=== PATIENT | male | born 1950 | race Caucasian/White ===

== ENCOUNTER 2017-06-06 05:29 | Emergency (ER) | payer MEDICARE, OTHER ==
[2017-06-06 05:51] VITALS: BP 139/76
--- NOTE | 2017-06-06 06:17 | ERNOTE ---
Chest Pain/Cardiac HPI Chief Complaint: Palpitations Time Seen by Provider: 06/06/17 06:03 Source: patient Exam Limitations: no limitations Immunizations: IMMUNIZATION HX Immunizations Up to Date Yes History of Influenza Vaccine No Hx Pneumococcal Vaccination Yes Allergies/Adverse Reactions: Allergies latex Adverse Reaction (Mild, Verified 06/06/17 05:51) watery eyes morphine Adverse Reaction (Mild, Verified 06/06/17 05:51) tremors Penicillins Adverse Reaction (Mild, Verified 06/06/17 05:51) hives, vomiting, tremors housekeeping spray Allergy (Severe, Uncoded 06/06/17 05:51) Shortness of Breath Severe Breathing Problems Home Medications: HOME MEDICATIONS Aspirin [Ecotrin] 325 mg PO DAILY 08/12/13 [Last Taken 07/11/14] Digoxin 125 mcg PO DAILY 08/12/13 [Last Taken 07/11/14] Eszopiclone [Lunesta] 3 mg PO DAILY 08/12/13 [Last Taken 07/11/14] HYDROcodone/ACETAMINOPHEN [[place] 5-325 Tablet] 1 each PO Q12H PRN 08/12/13 [ Last Taken 07/11/14] Losartan Potassium [Cozaar] 50 mg PO DAILY 08/12/13 [Last Taken 07/11/14] Pioglitazone HCl/Metformin HCl [Actoplus Met 15 mg-850 mg Tab] 1 each PO BID [Last Taken 07/11/14] Pregabalin [Lyrica] 100 mg PO BID 08/12/13 [Last Taken 07/11/14] Centrum Silver Ultra Men's Tab 05/10/14 [Last Taken Unknown] Vitamin D3 05/10/14 [Last Taken Unknown] Narrative: Pt states he awoke with shortness of breath that he was not sure was a panic attack or if he was in a-fib again. Timing: constant Severity/Quality: moderate Location: substernal Chest Pain Radiation: no radiation Activities at Onset: sleep Modifying Factors - Improves: Present: nothing Modifying Factors - Worsens: Present: nothing Review of Systems - Review of Systems Constitutional: Present: no symptoms reported EYE: Present: no symptoms reported ENT: Present: no symptoms reported Respiratory: Present: shortness of breath. Absent: wheezing Cardiology: Present: palpitations. Absent: chest pain Gastrointestinal/Abdominal: Present: nausea Genitourinary: Present: no symptoms reported Musculoskeletal: Present: no symptoms reported Skin: Absent: rash Neurological: Present: tingling - hands and feet. Endocrine: Present: no symptoms reported Hematologic/Lymphatic: Present: no symptoms reported Psych: Present: anxiety - Patient's Past Medical History Patient History - Medical: Diabetes Type 2 Patient History - Cardiac/Respiratory: Atrial Fibrillation Patient History - Cancer: No Hx of Cancer Patient History - Surgical Procedures: Back Surgery, Cholecystectomy, Total Knee Replacement, T & A, Other - Family History Brother Family History - Medical: , Diabetes Type 2, Renal Failure, Seizures Family History - Cardiac/Respiratory: CHF Father Family History - Medical: , Diabetes Type 2 Family History - Cardiac/Respiratory: Coronary Heart Disease Mother Family History - Medical: Family History - Cardiac/Respiratory: COPD Sister Family History - Medical: Diabetes Type 2 - Social History Living Situations: home Smoking Status: Never smoker Alcohol Use: none Drug Use: none - Immunizations Immunizations Up to Date: Yes Hx Pneumococcal Vaccination: Yes History of Influenza Vaccine: No Physical Exam - Physical Exam General Appearance: Present: wd/wn, alert, mild distress Head Exam: Present: normal inspection, no evidence of injury Eye Exam: Normal inspection: bilateral Ears, Nose, Throat: Present: normal ENT inspection Neck: Present: normal inspection, nontender, supple Respiratory: Present: no respiratory distress, no accessory muscle use, lungs clear Cardiovascular/Chest: Present: regular rate, rhythm, no murmur, normal peripheral pulses Gastrointestinal/Abdominal: Present: normal bowel sounds, nondistended, soft, tenderness - mild epigastric. Absent: distended, guarding, rebound Extremity Exam: Present: normal inspection, normal range of motion, no edema Neurological Exam: Present: alert, oriented, normal mood/affect, no motor/ sensory deficits Skin Exam: Present: normal color, warm/dry Lymphatic Exam: Present: no adenopathy ED Progress - Results and Orders Patient's Lab Results:: I have reviewed the patient's lab results. Results and Orders: Laboratory Tests 06/06/17 06/06/17 06/06/17 06:15 06:15 06:15 WBC 5.1 Hgb 12.6 L Hct 36.7 L Plt Count 164 PT 10.7 INR (Anticoag Therapy) 1.03 PTT ([place]) 26.4 Sodium 140 Potassium 3.6 D Chloride 104 Carbon Dioxide 26.3 Anion Gap 13.3 BUN 12 Creatinine 0.91 Random Glucose 117 H Calcium 8.8 Total Bilirubin 1.8 H AST 17 ALT 22 Alkaline Phosphatase 77 Troponin I Less than 0.017 Total Protein 6.1 L Albumin 3.7 Digoxin 06/06/17 06:24 WBC Hgb Hct Plt Count PT INR (Anticoag Therapy) PTT ([place]) Sodium Potassium Chloride Carbon Dioxide Anion Gap BUN Creatinine Random Glucose Calcium Total Bilirubin AST ALT Alkaline Phosphatase Troponin I Total Protein Albumin Digoxin 0.5 - Vital Signs Patient's Vital Signs:: I have reviewed the patient's vital signs. Vital Signs: Vital Signs 06/06/17 05:47 Temperature 36.9 C Pulse Rate 77 Respiratory 18 Rate Blood Pressure 139/76 O2 Sat by Pulse 100 Oximetry - Progress/Reassessment Chief Complaint: Palpitations Progress:: Unchanged Progress Note-Subjective: 06/06/17 07:01 I went into the room to talk to the patient about his lab and talk about discharge. The patient was talking to the nurse about leaving AMA. I told him there was no reason for that as I am planning on discharging him. Pt is anxious and has difficulty processing what I am telling him. He is focused on a previous visit when he was sent to [place] "against my will", and is afraid that will happen again. I assured him that I do not believe he needs to be transferred anywhere and that I was trying to talk to him about going home. I asked if he would like something sent home with him to help with his anxiety. Pt could not answer the question and continued to appear anxious but did not answer. 06/06/17 08:21 We were going to discharge the patient but he had an IV access in his right AC. He was then resistant to let us take his IV out before he left. Pt. even clenched his fist at me when I tried to remove the IV. We decided to allow the patient his space for a short time, the nurse then returned to the room and she was able to remove the IV. There was still some concern about the patient going home alone. [facility] clinical administrator came and assisted with the patient and they were able to get the patient to give them a number for his daughter. She came and accompanied the patient home. Departure Clinical Impression: Anxiety reaction - Departure Disposition: Home Follow Up Needed Condition: Good Instructions: Panic Attacks, [id number] Referrals: Jarad Pacheco DO [Primary Care Provider] -
[2017-06-06 06:21] LABS: Hematocrit 36.7 % (42.0-52.0); Hemoglobin 12.6 gm/dL (13.5-18.0); Mean Cell Volume 89.3 fl (78-100); Mean Corpuscular Hemoglobin 30.7 pg (27-31); Mean Corpuscular Hgb Conc 34.3 g/dl (32-36); Mean Platelet Volume 9.4 fl (6.0-9.5); Neutrophil # 2.7 K/mm3 (1.3-6.0); Neutrophil % 53.7 % (42-75.0); Platelet Count 164 K/mm3 (150-450); Red Blood Count 4.11 M/mm3 (4.7-6.0); Red Cell Distribution Width 13.5 % (11.5-14.0); White Blood Count 5.1 K/mm3 (4.0-10.5)
[2017-06-06 06:26] LABS: Prothrombin Time (Patient) 10.7 Seconds (9.4-11.4)
[2017-06-06 06:27] LABS: INR 1.03 INR (0.90-1.10); Partial Thrombolplastin Time 26.4 Seconds (24-32)
[2017-06-06 06:34] LABS: ALT 22 U/L (19-67); AST 17 U/L (0-48); Albumin * 3.7 gm/dl (3.4-5.0); Alkaline Phosphatase * 77 U/L (50-170); Anion Gap 13.3 mmol/L (6.8-13.8); BUN/Creatinine Ratio 13.2 (9.0-21.6); Bilirubin, Total 1.8 mg/dL (0.0-1.1); Blood Urea Nitrogen 12 mg/dL (6-23); Ca. Corrected For Albumin 8.7 mg/dL (8.4-10.2); Calcium * 8.8 mg/dL (7.9-10.9); Carbon Dioxide 26.3 mmol/L (24-32.6); Chloride 104 mmol/L (97-106); Glucose * 117 mg/dL (70-110); Potassium 3.6 mmol/L (3.4-4.6); Sodium 140 mmol/L (132-142); Total Protein 6.1 gm/dL (6.2-8.2)
[2017-06-06 06:35] LABS: Troponin I Less than 0.017 ng/ml (0.00-0.10)
[2017-06-06] MEDS ORDERED: ONDANSETRON 4 MG TAB.RAPDIS ONE (08:08)
[2017-06-06 08:09] LABS: Urine Bilirubin Negative (NEGATIVE); Urine Blood Negative /ul (NEGATIVE); Urine Ketone 15 mg/dL (NEGATIVE); Urine Nitrite Negative (NEGATIVE); Urine Protein Negative (NEGATIVE); Urine Specific Gravity 1.015 SP.GR. (1.005-1.030); Urine Urobilinogen Normal (NORMAL); Urine pH 7.5 pH (5.0-7.0)
[2017-06-06] MEDS ORDERED: ONDANSETRON 4 MG TAB.RAPDIS PO ONE (08:10)
[2017-06-06 08:18] LABS: Urine Appearance Clear; Urine Bacteria None Seen; Urine Color Yellow; Urine RBC None Seen /hpf (0-5); Urine WBC None Seen /hpf (0-5)
[2017-06-06 08:25] LABS: Cocaine Ur Negative (NEGATIVE); Urine Barbiturate Negative (NEGATIVE); Urine Benzodiazepines Negative (NEGATIVE); Urine Opiates Negative (NEGATIVE); Urine PCP Negative (NEGATIVE); Urine THC Negative (NEGATIVE)
== END 2017-06-06 09:35 | disposition home or self-care (01) ==
LOC: ER 05:29
DX: F41.1 Generalized anxiety disorder (principal)